=== PATIENT | female | born 1990 | race Caucasian/White ===

== ENCOUNTER 2017-07-12 18:17 | Emergency (ER) | payer SELFPAY ==
[~2017-07-12] VITALS: Ht 167.6 cm; Wt 86.0 kg
[2017-07-12 19:08] VITALS: BP 123/72; PULSE 67; RESP 18; TEMP 97.9; O2SAT 98
[2017-07-12] MEDS ORDERED: DICL75TA PO (19:56)
[2017-07-12] MEDS ORDERED: PRED20 PO (19:56)
[2017-07-12] MEDS ORDERED: ALBU6.7H INH (19:56)
[2017-07-12] MEDS ORDERED: CYCL10TA PO (19:56)
[2017-07-12] MEDS ORDERED: ORPHENADRINE INJ 60 MG/2 ML AMP IM ONE (20:00)
[2017-07-12] MEDS ORDERED: KETOROLAC TROMETHAMINE 60 MG/2 ML (IM) VIAL IM ONE (20:00)
--- NOTE | 2017-07-12 20:01 | PD ---
HPI Chief Complaint: Headache Time Seen by Provider: 19:45 Travel History International Travel<30 days: No Contact w/Intl Traveler<30days: No Traveled to known affect area: No History of Present Illness HPI 27-year-old female presents emergency department requesting evaluation and treatment of what she calls as a migraine headache. She states that this is been present now for the past 3-4 days. Patient is started on the left side of her head with radiation down into her left neck. She states it feels like a spasm and tightening. Pain has been intermittent. Moderate in intensity. She denies any visual changes. No numbness, tingling or weakness. She states that she has some nausea but no vomiting. She also goes on to state that she has had problem with asthma and has been out of her medications. She does continue to smoke. Patient reports increase in labored breathing, cough and some wheezing. She denies any fever or chills. No sputum production. No vomiting or abdominal pain. No urine symptoms. PFSH Past Medical History Narrative Medical Asthma Respiratory: Yes (asthma) Tetanus Vaccination: < 5 Years ?: Not LMP: 06/13/17 Past Surgical History Surgical History: No Previous Surgery Social History Alcohol Use: No Tobacco Use: Yes Substance Use: No Allergies-Medications (Allergen,Severity, Reaction): Coded Allergies: No Known Drug Allergies (Verified Allergy, Unknown, 07/12/17) Reported Meds & Prescriptions Reported Meds & Active Scripts Active Prednisone 20 Mg Tab 20 Mg PO BID 5 Days Proventil Hfa 6.7 GM Inh (Albuterol Sulfate) 90 Mcg/Act Aer 2 Puff INH Q6H PRN Flexeril (Cyclobenzaprine HCl) 10 Mg Tab 10 Mg PO TID Diclofenac Sodium DR (Diclofenac Sodium) 75 Mg Tabdr 75 Mg PO BID Review of Systems Except as stated in HPI: all other systems reviewed are Neg Physical Exam Narrative GENERAL: Well-developed, well-nourished in no apparent distress. Nontoxic appearing. HEAD: Normocephalic, atraumatic. EYES: Pupils equal round and reactive. Extraocular motions intact. No scleral icterus. No injection or drainage. ENT: Nose clear. Throat without erythema, tonsillar hypertrophy or exudate. Uvula midline. Airway patent. NECK: Trachea midline. Supple, nontender, moves head freely. No central bony tenderness or spasm. CARDIOVASCULAR: Regular rate and rhythm without murmurs, gallops, or rubs. RESPIRATORY: Clear to auscultation. Breath sounds equal bilaterally. No wheezes , rales, or rhonchi. GASTROINTESTINAL: Abdomen soft, non-tender, nondistended. No hepato-splenomegaly , or palpable masses. No guarding. EXTREMITIES: No clubbing, cyanosis, or edema. No joint tenderness. BACK: Nontender without deformity. No flank tenderness. NEUROLOGICAL: Awake, alert and oriented x 3 .Cranial nerves grossly intact. Motor and sensory grossly within normal limits. Normal speech. Data Data Last Documented VS Vital Signs Date Time Temp Pulse Resp B/P (MAP) Pulse Ox O2 Delivery O2 Flow Rate FiO2 07/12/17 19:08 97.9 67 18 123/72 (89) 98 Orders Orders Ketorolac Inj (Toradol Inj) (07/12/17 20:00) Orphenadrine Inj (Norflex Inj) (07/12/17 20:00) Ed Discharge Order (07/12/17 19:53) [facility] Medical Decision Making Medical Screen Exam Complete: Yes Emergency Medical Condition: Yes Medical Record Reviewed: Yes Differential Diagnosis Differential diagnosis: Migraine, tension headache, asthma, bronchitis Narrative Course The patient is resting comfortably in examination room. She does not appear to be in any discomfort whatsoever. She is chasing her 2 young children around her room. I have informed her that we cannot use narcotics. I would be happy to give her Toradol and Norflex. Patient agrees. She will be discharged home on diclofenac , Flexeril, prednisone and albuterol. This is cephalgia, asthma Diagnosis Primary Impression: Cephalgia Additional Impression: Asthma Patient Instructions: General Instructions Departure Forms: Tests/Procedures, Work Release Special Instructions: No work 2-3 days. Additional Instructions: Rest. Ice for the next 3 days followed by heat . Flexeril and Voltaren. Stop smoking. Prednisone and albuterol for your asthma. Follow-up with a primary care doctor in one week. Return to the ER for emergencies. Med/Other Pt SpecificInfo: Prescription(s) given Scripts Prednisone (Prednisone) 20 Mg Tab 20 MG PO BID for 5 Days, #10 TAB 0 Refills Prov: Abram Mcneal MD 07/12/17 Albuterol 6.7 GM Inh (Proventil Hfa 6.7 GM Inh) 90 Mcg/Act Aer 2 PUFF INH Q6H Y for SHORTNESS OF BREATH, #1 INHALER 0 Refills Prov: Abram Mcneal MD 07/12/17 Cyclobenzaprine (Flexeril) 10 Mg Tab 10 MG PO TID for Muscle Spasm, #21 TAB 0 Refills Prov: Abram Mcneal MD 07/12/[address] (Diclofenac Sodium DR) 75 Mg Tabdr 75 MG PO BID, #14 TAB 0 Refills Prov: Abram Mcneal MD 07/12/17 Disposition: 01 DISCHARGE HOME Condition: Stable James Do Jul 12, 2017 20:01
== END 2017-07-12 20:08 | disposition home or self-care (01) ==
LOC: NEPD 18:17
DX: R51 Headache (principal); J45.909 Unspecified asthma, uncomplicated; Z72.0 Tobacco use
CPT/HCPCS: 96372; 99283; J1885; J2360

== ENCOUNTER 2017-08-13 19:25 | Emergency (ER) | payer MEDICAID ==
[~2017-08-13] VITALS: Ht 167.6 cm; Wt 85.5 kg
[~2017-08-13 19:25] MED LIST: ALBU6.7H INH; CYCL10TA PO; DICL75TA PO; PRED20 PO
[2017-08-13 19:56] VITALS: BP 122/60; PULSE 80; RESP 18; TEMP 98.1; O2SAT 98
[2017-08-13] MEDS ORDERED: BENZ100 PO (20:06)
[2017-08-13] MEDS ORDERED: ALBUAER3 INH (20:06)
[2017-08-13] MEDS ORDERED: PRED20 PO (20:06)
--- NOTE | 2017-08-13 20:09 | PD ---
HPI Chief Complaint: Respiratory Symptoms Time Seen by Provider: 20:04 Travel History International Travel<30 days: No Contact w/Intl Traveler<30days: No Traveled to known affect area: No History of Present Illness HPI 27-year-old female with history of asthma presents for evaluation of cough. She reports that she has had intermittent wheezing for the past 3 weeks, aggravated by running out of her albuterol inhaler. She reports over the past 5 days she has had a cough with productive yellow sputum production. She reports occasional posttussive emesis. Currently she is only using Singulair as well as a few leftover tablets of prednisone for symptom treatment. Denies fevers, chills, chest pain, recent travel. She reports occasional tobacco use. No other complaints at this time. PFSH Past Medical History Respiratory: Yes (asthma) ?: Not LMP: August 08, 2017 Social History Alcohol Use: No Tobacco Use: Yes Substance Use: No Allergies-Medications (Allergen,Severity, Reaction): Coded Allergies: No Known Drug Allergies (Verified Allergy, Unknown, 07/12/17) Reported Meds & Prescriptions Reported Meds & Active Scripts Active Proair Hfa 8.5 GM Inh (Albuterol Sulfate) 90 Mcg/Act Aer 2 Puff INH Q4-6H PRN 108 mcg/actuation Tessalon Perles (Benzonatate) 100 Mg Cap 200 Mg PO TID PRN Prednisone 20 Mg Tab 20 Mg PO BID 5 Days Prednisone 20 Mg Tab 20 Mg PO BID 5 Days Proventil Hfa 6.7 GM Inh (Albuterol Sulfate) 90 Mcg/Act Aer 2 Puff INH Q6H PRN Flexeril (Cyclobenzaprine HCl) 10 Mg Tab 10 Mg PO TID Diclofenac Sodium DR (Diclofenac Sodium) 75 Mg Tabdr 75 Mg PO BID Review of Systems Except as stated in HPI: all other systems reviewed are Neg Physical Exam Narrative GENERAL: Well-developed well-nourished female no acute distress SKIN: Warm and dry. HEAD: Atraumatic. Normocephalic. EYES: Pupils equal and round. No scleral icterus. No injection or drainage. ENT: No nasal bleeding or discharge. Mucous membranes pink and moist. NECK: Trachea midline. No JVD. CARDIOVASCULAR: Regular rate and rhythm. No murmur appreciated. RESPIRATORY: No accessory muscle use. Slight wheezing bilaterally. No crackles. Data Data Last Documented VS Vital Signs Date Time Temp Pulse Resp B/P (MAP) Pulse Ox O2 Delivery O2 Flow Rate FiO2 08/13/17 19:56 98.1 80 18 122/60 (80) 98 Orders Orders Albuterol-Ipratropium Neb (Duoneb Neb) (08/13/17 20:15) Ed Discharge Order (08/13/17 20:04) MDM Medical Decision Making Medical Screen Exam Complete: Yes Emergency Medical Condition: Yes Medical Record Reviewed: Yes Differential Diagnosis Asthma exacerbation, reactive airway disease, bronchitis, pneumonia Narrative Course The patient will be given a DuoNeb treatment here. She will be discharged with prescriptions for Tessalon, prednisone, albuterol inhaler. Diagnosis Primary Impression: Asthma exacerbation Additional Instructions: Medication as prescribed, avoid tobacco products, can use [id number] lozenges as well as dextromethorphan for cough suppression. Stay well hydrated and well-nourished. Return for any emergent medical conditions. Med/Other Pt SpecificInfo: Prescription(s) given Scripts Albuterol 8.5 GM Inh (Proair Hfa 8.5 GM Inh) 90 Mcg/Act Aer 2 PUFF INH Q4-6H Y for SHORTNESS OF BREATH, #1 INHALER 0 Refills 108 mcg/actuation Prov: Ariadne Staley MD 08/13/17 Benzonatate (Tessalon Perles) 100 Mg Cap 200 MG PO TID Y for COUGH, #30 CAP 0 Refills Prov: Ariadne Staley MD 08/13/17 Prednisone (Prednisone) 20 Mg Tab 20 MG PO BID for 5 Days, #10 TAB 0 Refills Prov: Ariadne Staley MD 08/13/17 Disposition: 01 DISCHARGE HOME Condition: Stable Richard Feldman Aug 13, 2017 20:09
[2017-08-13] MEDS ORDERED: RESP: ALBUTEROL 2.5 MG/IPRATROPIUM 0.5 MG NEB (SCH) INH ONE (20:15)
[2017-08-13] MEDS ORDERED: ALBU0.08 NEB (20:35)
[2017-08-13 20:49] VITALS: O2SAT 98
== END 2017-08-13 21:09 | disposition home or self-care (01) ==
LOC: NEPK 19:25
DX: J45.901 Unspecified asthma with (acute) exacerbation (principal); Z72.0 Tobacco use
CPT/HCPCS: 94664; 99283

== ENCOUNTER 2017-09-19 02:06 | Emergency (ER) | payer MEDICAID ==
[~2017-09-19] VITALS: Ht 167.6 cm; Wt 80.0 kg
[~2017-09-19 02:06] MED LIST changes: +ALBU0.08 NEB; +ALBUAER3 INH; +BENZ100 PO; -CYCL10TA PO; -DICL75TA PO
[2017-09-19 02:21] VITALS: BP 118/65; PULSE 60; RESP 16; TEMP 98.2; O2SAT 100
[2017-09-19 04:48] LABS: BILIRUBIN, URINE NEG (NEG); BLOOD, URINE NEG (NEG); GLUCOSE,URINE NEG (NEG); HYALINE CAST, URINE 2 /lpf (RARE); KETONE, URINE NEG (NEG); MUCUS URINE MANY /lpf (OCC); NITRITE,URINE NEG (NEG); SQUAMOUS EPITHELIAL CELL URINE 1 /hpf (0-5); URINE COLOR YELLOW (YELLW/STRAW); URINE LEUKOCYTE ESTERASE MOD (NEG)
[2017-09-19] MEDS ORDERED: CEPH-460 PO (04:55)
[2017-09-19] MEDS ORDERED: MUPI2%T TOPICAL (04:55)
--- NOTE | 2017-09-19 04:55 | PD ---
HPI Chief Complaint: Complaint Time Seen by Provider: 04:45 Travel History International Travel<30 days: No Contact w/Intl Traveler<30days: No Traveled to known affect area: No History of Present Illness HPI Patient is a 27-year-old female presents emergency department with several complaints. Patient states she had an eczema breakout on bilateral upper extremities and thinks she needs a cream to get rid of it. She has secondary complaint of a new boyfriend and without any vaginal bleeding or vaginal discharge she requested STD test and hepatitis C test. She has a third complaint that her voice has been hoarse ever since she had upper respiratory infection a few months ago. Patient denies any exposures but does endorse some new soap that she has been using in bilateral upper extremities. No chest pain or shortness of breath no abdominal pain no nausea vomiting. Symptoms mild, bilateral upper extremities, duration is for the past few days, context as above PFSH Past Medical History Asthma: Yes Diminished Hearing: No Respiratory: Yes (asthma) Integumentary: Yes (excema) Tetanus Vaccination: Unknown Influenza Vaccination: No ?: Not LMP: 09/15/2017 Past Surgical History Appendectomy: Yes Social History Alcohol Use: No Tobacco Use: No Substance Use: No Allergies-Medications (Allergen,Severity, Reaction): Coded Allergies: No Known Drug Allergies (Verified Allergy, Unknown, 09/19/17) Reported Meds & Prescriptions Reported Meds & Active Scripts Active Bactroban Topical (Mupirocin) 22 Gm Cream 1 Applic TOPICAL BID Keflex (Cephalexin) 500 Mg Cap 500 Mg PO Q6H 7 Days Review of Systems Except as stated in HPI: all other systems reviewed are Neg Physical Exam Narrative GENERAL: Well-nourished, well-developed patient. SKIN: Focused skin assessment warm/dry. There are some small papules coalescing on the upper extremities, slightly raised and rough to touch. Blanches easily. Not consistent with vesicles, inconsistent with scabies and consistent with bug bites. Certainly looks like an atopic dermatitis nonspecific rash. Certainly could consider contact dermatitis as well. HEAD: Normocephalic. EYES: No scleral icterus. No injection or drainage. NECK: Supple, trachea midline. No JVD or lymphadenopathy. CARDIOVASCULAR: Regular rate and rhythm without murmurs, gallops, or rubs. RESPIRATORY: Breath sounds equal bilaterally. No accessory muscle use. GASTROINTESTINAL: Abdomen soft, non-tender, nondistended. GENITAL urine offered to the patient and she declined rather follow-up with the health department for more complete testing peer MUSCULOSKELETAL: No cyanosis, or edema. BACK: Nontender without obvious deformity. No CVA tenderness. Data Data Last Documented VS Vital Signs Date Time Temp Pulse Resp B/P (MAP) Pulse Ox O2 Delivery O2 Flow Rate FiO2 09/19/17 05:25 09/19/17 02:21 98.2 60 16 100 Orders Orders Urinalysis - C+S If Indicated (09/19/17 03:42) Ed Urine Pregnancytest Poc (09/19/17 03:42) Urine Culture (09/19/17 04:30) Diphenhydramine (Benadryl) (09/19/17 05:00) Ed Discharge Order (09/19/17 04:55) Labs Laboratory Tests Test 09/19/17 04:30 Urine Color YELLOW Urine Turbidity CLEAR Urine pH 6.0 Urine Specific [place] 1.020 Urine Protein TRACE mg/dL Urine Glucose (UA) NEG mg/dL Urine Ketones NEG mg/dL Urine Occult Blood NEG Urine Nitrite NEG Urine Bilirubin NEG Urine Urobilinogen LESS THAN 2.0 MG/DL Urine Leukocyte Esterase MOD Urine RBC 5 /hpf Urine WBC 44 /hpf Urine Squamous Epithelial Cells 1 /hpf Urine Hyaline Casts 2 /lpf Urine Mucus MANY /lpf Microscopic Urinalysis Comment CULTURE INDICATED MDM Medical Decision Making Medical Screen Exam Complete: Yes Emergency Medical Condition: Yes Differential Diagnosis Eczema, skin rash, STD exposure, hoarseness of voice peer Narrative Course Patient room to the emergency department, discussed symptomatic management of her rash. Remainder of her complaints represent nonemergent conditions can be followed up on an outpatient basis. Discussed follow-up with the [facility] in the health department. She has not had any symptoms of active STD infection she is stable for discharge Diagnosis Primary Impression: Folliculitis Additional Impression: UTI (urinary tract infection) Med/Other Pt SpecificInfo: Prescription(s) given Scripts Mupirocin Topical (Bactroban Topical) 22 Gm Cream 1 APPLIC TOPICAL BID for Mgmt Bacterial Infection, #1 TUBE 0 Refills Prov: Faustino Patricia MD 09/19/17 Cephalexin (Keflex) 500 Mg Cap 500 MG PO Q6H for Infection for 7 Days, #28 CAP 0 Refills Prov: Faustino Patricia MD 09/19/17 Disposition: 01 DISCHARGE HOME Condition: Stable Faustino Patricia MD September 19, 2017 04:55
[2017-09-19] MEDS ORDERED: diphenhydrAMINE HCL 25 MG CAP PO ONE (05:00)
== END 2017-09-19 05:26 | disposition home or self-care (01) ==
LOC: NEPC 02:06
DX: L73.9 Follicular disorder, unspecified (principal); N39.0 Urinary tract infection, site not specified
CPT/HCPCS: 81001; 84703; 87086; 99283